=== PATIENT | female | born 2005 | race Caucasian/White ===

== ENCOUNTER 2024-07-09 18:24 | Emergency (ER) | payer OTHER, SELFPAY ==
--- NOTE | ~2024-07-09 | XR_ITS ---
CLINICAL HISTORY: tenderness distal ulna 3 view right hand Comparison: None Findings: Bones intact. No dislocations. No significant arthritic change. No erosions. No radiopaque foreign body. IMPRESSION: 1. No acute findings This document has been electronically signed by: Guy Vyas MD on 07/09/2024 19:28:06
[2024-07-09 18:34] VITALS: BP 110/60; PULSE 90; O2SAT 98
--- NOTE | 2024-07-09 18:42 | ED_ITS ---
HPI - General Adult General Chief complaint: Extremity Injury, Upper Stated complaint: r wrist pain Time Seen by Provider: 07/10/24 01:46 Source: patient Limitations: no limitations History of Present Illness ED Provider: Tonya Hinton PA-C HPI narrative: 18 year old female with a history of anxiety presents with right wrist pain. Patient states she was trying to pull herself up onto her bed, she subsequently strained the wrist. Related Data Home Medications ?Medication ?Instructions ?Recorded ?Confirmed escitalopram oxalate 10 mg tablet mg PO DAILY 07/01/24 Allergies Allergy/AdvReac Type Severity Reaction Status Date / Time No Known Allergies Allergy Verified 07/09/24 18:55 Review of Systems Review of Systems: Yes all other systems are reviewed and are negative Constitutional: Constitutional: Denies fatigue and Denies fever(s) Cardiovascular: Cardiovascular: Denies chest pain and Denies dyspnea Respiratory: Respiratory: Denies cough and Denies dyspnea Musculoskeletal: Musculoskeletal: Reports arthralgias and Denies joint swelling Endocrine: Endocrine: Denies fatigue [facility] Past Medical History Attestation statement: The following information was validated with the patient. Social History Social History Alcohol intake: never Patient Tobacco Use Status: Never used Tobacco Smoked in Last 30 Days: No Use of substances other than those prescribed or required for medical reasons: No Advance Directives: No Advance Directives Information Provided: Yes Do you have a plan to hurt others: No Plan Patient : No Physical Exam ED Vital Signs: Vital Signs - 24 hr 07/09/24 18:49 07/10/24 04:00 07/10/24 11:33 Temperature 97.6 F 97.4 F Pulse Rate 89 74 74 Respiratory Rate 18 20 Blood Pressure 113/75 115/69 115/69 Pulse Oximetry 100 97 97 Oxygen Delivery Method Room Air Room Air BMI result Body Mass Index 19.4 Const Other: Alert, anxious, tearful, sobbing Orientation/consciousness: patient oriented x3 Resp Effort & Inspection: normal respiratory effort Cardio Other: Normal peripheral perfusion Skin Other: Warm dry no rash Neuro General: patient oriented x3, no focal motor deficits and CN's II-XI intact b ilaterally Extrem Other: There was no swelling, deformity or ecchymosis noted over the right wrist, she has full flexion and extension. There is full flexion and extension of bilateral ankles, there was no swelling, there was no deformity there was no ecchymosis. Course Course Course Narrative: This is a rapid medical exam performed by Ki Henry NP: Additional HPI, ROS, PE not included below will be deferred to primary provider. Patient is a 18-year-old right hand dominant female presenting with right wrist pain. Student at [employer], currently using crutches for sprained ankle. Pain began while using crutches trying to get into her bed. Plan: xray Reevaluation(s) Reevaluation #1: I spoke with the patient's mother over the phone. She relayed to me that her child is on the spectrum, that she has anxiety, which I can see in her chart. I have relayed the plan to her, she is going to call her daughter back. I will touch base with mom again after she speaks with the daughter. I did express concerns that the daughter may require care team consult given she is having an active panic attack. We will see how this plays out once her mom speaks with her daughter. Reevaluation #2: The patient has settled down, I am offering her food and drink, we are going to get her into a quiet space. Mom is aware of the plan and is in agreement. Reevaluation #3: 07/10/2024 1218 pm Awa Landry PA-C ---> Patient evaluated by physical t rhea who expressed concern over patient's response to these minor injuries and recommended CARE team consult. I agree. CARE consult placed. 07/10/2024 1221 pm Awa Landry PA-C ---> Patient declined CARE consult and would like to be discharged. Patient cleared for discharge. Medications Administered Discontinued Medications Generic Name Dose Route Start Last Admin Trade Name Bronywn PRN Reason Stop Dose Admin Acetaminophen 975 mg 07/10/24 03:08 07/10/24 03:50 Acetaminophen 325 Mg Tablet PO 07/10/24 03:09 975 mg ONCE ONE Administration Ibuprofen 600 mg 07/10/24 03:08 07/10/24 03:49 Ibuprofen 600 Mg Tablet PO 07/10/24 03:09 600 mg ONCE ONE Administration Medical Decision Making Medical Decision Making MDM Narrative: 18 year old female with a history of anxiety presents with right wrist pain. Patient states she was trying to pull herself up onto her bed, she subsequently strained the wrist. Problem: Anxiety History: Per patient I have considered the following differential diagnoses: Panic attack, fracture, dislocation, sprain Plan: X-ray obtained from triage, it was normal. The patient is developing a panic attack. She states she sprained the right ankle in April, she has had ongoing discomfort and has been unable to ambulate. She has been using crutches to help her ambulate. She subsequently sprained the left ankle last week. Now that the patient has injured the right wrist, she is extremely distraught, she is panicking that she is not going to be able to ambulate at all and maneuver herself on campus; she is a [employer] student. I will be placing her in a wrist splint, giving ibuprofen and Tylenol. My plan is to hold her over for physical therapy and case management, she is inquiring about a wheelchair. I will be reaching out to her mother, she had left a message to call with updates. To note, the patient has an appointment with an orthopedic service next week. I have independently reviewed the following tests: X-ray right wrist:MPRESSION: 1. No acute findings This document has been electronically signed by: Guy Vyas MD on 07/09/2024 19:28:06 Lab Data Labs: Lab Results 07/10/24 Range/Units 10:14 Influenza Type A (PCR) NEGATIVE (Negative) Influenza Type B (PCR) NEGATIVE (Negative) RSV RNA Qual (PCR) NEGATIVE (Negative) SARS-CoV-2 RNA (RT-PCR) NEGATIVE (Negative) Discharge Plan Discharge Clinical Impression: Right ankle sprain, Bilateral ankle pain Patient Disposition: Still a Patient Prescriptions: No Action escitalopram oxalate 10 mg tablet PO DAILY Print Language: Spanish
[2024-07-09 18:49] VITALS: BP 113/75; PULSE 89; RESP 18; TEMP 36.4; O2SAT 100; BMI 19.4
[2024-07-10] MEDS: Ibuprofen 600 MG TABLET PO (03:49)
[2024-07-10] MEDS: Acetaminophen 325 MG TABLET 975 MG PO (03:50)
[2024-07-10 04:00] VITALS: BP 115/69; PULSE 74; RESP 20; TEMP 36.3; O2SAT 97
[2024-07-10 11:04] LABS: Influenza A PCR NEGATIVE (Negative); Influenza B PCR NEGATIVE (Negative); Resp Syncy Virus RNA Qual PCR NEGATIVE (Negative); SARS COV2 PCR INHOUSE NEGATIVE (Negative)
[2024-07-10 11:33] VITALS: BP 115/69; PULSE 74; O2SAT 97
[2024-07-10 12:28] VITALS: BP 119/67; PULSE 81; RESP 16; TEMP 36.4; O2SAT 100
== END 2024-07-10 13:37 | disposition home or self-care (01) ==
PROVIDERS: Physician Assistant Medical; Emergency Provider Emergency Medicine
DX: S63.501A Unspecified sprain of right wrist, initial encounter (principal); S93.401A Sprain of unspecified ligament of right ankle, initial encounter; M25.562 Pain in left knee; M25.561 Pain in right knee; M79.641 Pain in right hand; F41.0 Panic disorder [episodic paroxysmal anxiety]; R26.81 Unsteadiness on feet; W06.XXXA Fall from bed, initial encounter; Y93.9 Activity, unspecified; Y92.003 Bedroom of unspecified non-institutional (private) residence as the place of occurrence of the external cause; Y99.8 Other external cause status; Z03.818 Encounter for observation for suspected exposure to other biological agents ruled out; Z91.81 History of falling; Z79.899 Other long term (current) drug therapy
CPT/HCPCS: 0241U; 29125; 73110; 73130; 97162; 99284

== ENCOUNTER → 2024-07-09 18:51 | Outpatient (BNV) | payer OTHER, SELFPAY | PROVIDERS: Visit Provider Radiology Diagnostic Radiology | DX: M79.641 Pain in right hand (principal) | CPT/HCPCS: 73130 ==

== ENCOUNTER 2024-07-15 10:07 | Outpatient (AMB) | payer OTHER, SELFPAY ==
--- NOTE | 2024-07-15 10:11 | MHC.OFFVIS ---
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 Patient reports for her right ankle she was walking on snow and she felt her ankle twist. She also is having complaints about left ankle pain since she was wearing a boot a couple weeks ago she had a shoe level on her left foot which made her ankle twist. Patient also states that her right wrist pain started when she was trying to get her slef up and started to have sharp pain in her wrist. Wrist pain started 07/09/24 . Hx of fx a couple years ago. Allergies No Known Allergies Allergy (Verified 07/15/24 10:28) HPI HPI WINCHMAN/CRANE OPERATOR- Right ankle sprain DOI 05/11/24: Details: Jennifer is a 18 year old right hand dominant female past medical history significant for autism who presents to the office today with her mother for bilateral ankle sprains. She presents today with bilateral ankle lace up braces and ambulating with the use of crutches as well as a right wrist velcro brace. Patient reports for her right ankle she was walking on snow on 05/11/2024 and she felt her ankle twist. She also is having complaints about left ankle pain. She reports that she was wearing a walking boot on the right side and a few weeks ago she had a shoe lift in the left shoe to help even out her gait. While walking the shoe lift slipped causing her to invert the left ankle. Patient also states that her right wrist pain started when she was trying to get up and started to have sharp pain in her wrist. Wrist pain started 07/09/24 . Hx of fx years ago. [facility] Social History Alcohol intake: never Patient Tobacco Use Status: Never used Tobacco Review of Systems Const All systems reviewed & are unremarkable except as noted in HPI and below Physical Exam Vital Signs: BMI result Body Mass Index 19.4 Const General: cooperative, healthy appearing and no acute distress Resp Effort & Inspection: normal respiratory effort and able to speak in complete sentences Cardio Rate: regular rate Peripheral pulses: Peripheral pulses 2+ throughout Skin Lesions: no lesions Rashes: no rashes Extrem Other: Right/Left ankle: Normal to inspection. No ecchymosis, erythema, or edema. Slight tenderness to palpation along both peroneal tendons bilaterally. Patient is able to demonstrate dorsiflexion, plantar flexion, pronation and supination. Negative anterior drawer. Sensation intact. Pedal Pulse intact. Assessment & Plan Assessment & Plan (1) Right ankle sprain: Code(s): S93.401A - Sprain of unspecified ligament of right ankle, initial encounter Category: Medical Qualifiers: Encounter type: initial encounter Involved ligament of ankle: unspecified ligament Qualified Code(s): S93.401A - Sprain of unspecified ligament of right ankle, initial encounter (2) Left ankle sprain: Code(s): S93.402A - Sprain of unspecified ligament of left ankle, initial encounter Category: Medical Plan Jennifer is a 18 year old right hand dominant female past medical history significant for autism who presents to the office today with her mother for bilateral ankle sprains. She presents today with bilateral ankle lace up braces and ambulating with the use of crutches as well as a right wrist velcro brace. Patient reports for her right ankle she was walking on snow on 05/11/2024 and she felt her ankle twist. She also is having complaints about left ankle pain. She reports that she was wearing a walking boot on the right side and a few weeks ago she had a shoe lift in the left shoe to help even out her gait. While walking the shoe lift slipped causing her to invert the left ankle. Patient also states that her right wrist pain started when she was trying to get up and started to have sharp pain in her wrist. Wrist pain started 07/09/24 . Hx of fx years ago. While the office today, the patient was referred to physical therapy for bilateral ankle sprains. She may continue using the lace-up ankle braces bilaterally as well as crutches as needed until she attends physical therapy. While at physical therapy the goal is to wean her out of the bilateral ankle lace-up braces and discontinue crutch use once strength allows. She will follow up p.r.n., sooner if needed. X-rays of the right and left ankle which were obtained while in the office today and were reviewed by me, Lovely Duval PA-C, and were negative for any acute fracture dislocation. Orders: Orders XR ankle LT min 3V Today M25.579 - Pain in unspecified ankle and joints of unspecified foot PT Evaluation and Treatment Today S93.402A - Sprain of unspecified ligament of left ankle, initial encounter XR ankle RT min 3V Today M25.579 - Pain in unspecified ankle and joints of unspecified foot Coding Level of Care Code New Pt Level 4 (13288) Diagnoses Sprain of right ankle, unspecified ligament, initial encounter S93.401A Encounter type: initial encounter Involved ligament of ankle: unspecified ligament Left ankle sprain S93.402A
[2024-07-15 10:29] VITALS: BMI 19.4
--- OUTSIDE RECORDS SUMMARY | 2024-07-15 10:35 | XMS_ITS | Encounter Summary ---
Author Organization [facility] Address [address] [place] [address] Phone Care Team Providers Care Field Reimbursement Manager Name Role Phone Jason Curry MD, Carline Primary Care Provider [phone] Reason for Visit * Reason Comments ED Admission Encounter Details Date Type Department Care Team (Late st Contact Info) Description 07/09/2024 6:16 PM EST - 07/10/2024 1:37 PM [facility] Hospital Encounter [facility] - Patient Ping Social History Tobacco Use Types Packs/Day Years Used Date Smoking Tobacco: Never Smokeless Tobacco: Never Alcohol Use Standard Drinks/Week Comments Never 0 (1 standard drink = 0.6 oz pur e alcohol) Hunger/Food Answer Date Recorded In the last 12 months, did y ou or your family ever eat less than you felt you should because there wasn't enough money for food? No 08/13/2023 Stable Housing Answer Date Recorded Are you worried that in the next 2 months you may not have stable housing? No 08/13/2023 Transportation Concerns Answer Date Rec orded In the last 12 months, have you or your family ever had to go without healthcare because you didn't have a way to get there? No 08/13/2023 Hazards in Home Answer Date Recorded Think about the place you li ve. Do you have problems with any of the following? Pests (mice or roaches), mold, no/not working smoke detectors, water leaks, no window guards. No 2023 Financing Utilities Answer Date Recorde d In the last 12 months, has t he electric, gas, oil, or water company threatened to shut off your services in your home? No 08/13/2023 Safety at Home Answer Date Recorded Are you or your family worried about feeling saf e in your home? No 08/13/2023 Outside Support Answer Date Recorded Do you feel that you need mo re support from other people or programs to help you care for yourself or your family? No 08/13/2023 Understanding Health Concerns Answer Da te Recorded Do you need help understandi ng your or your child's healthcare needs (diagnosis, medications, plan, etc.)? No 08/13/2023 Financing Health Concerns Answer Date R ecorded In the last 12 months, was t here a time when your child needed to see a doctor or get medications or supplies but could not because of cost? No 08/13/2023 Missing School or Work Answer Date Adriná rded Did you or your child miss s chool or work because of a health problem that could have been avoided? No 08/13/2023 Comments Unknown Sex and Gender Information Value Date Recorded Sex Assigned at Female 01/21/2020 3:45 PM EDT Legal Sex Female 8:57 AM EST Gender Identity Gender nonconforming/non-binary 08/13/2023 2:25 PM EDT Sexual Orientation Choose not to disclose 2021 4:06 PM EDT documented as of this encounter Medications at Time of Discharge adapalene 0.3 % gel APPLY TOPICALLY TO THE AFFECTED AREA EVERY OTHER NIGHT AT BEDTIME FOR 4 WEEKS THEN APPLY TOPICALLY TO THE AFFECTED AREA EVERY NIGHT AT BEDTIME 06/29/2023 escitalopram 10 MG tablet TK 1 T PO QD 03/04/2019 documented as of this encounter Plan of Treatment Not on file documented as of this encounter Visit Diagnoses Not on filedocumented in this encounter Care Teams Field Reimbursement Manager Relationship Specialty Start Date End Date Carline Gomez MD [address] [place] [address] PCP - General 07/17/16 documented as of this encounter
--- OUTSIDE RECORDS SUMMARY | 2024-07-15 10:35 | XMS_ITS | Clinical Summary ---
Author Organization [facility] Address [address] [place] [id number] Care Team Providers Care Inspector Receiving Name Role Phone Carline Gomez MD Primary Care Provider Carline Gomez MD Unavailable [phone] Allergies No known active allergies Medications escitalopram oxalate (LEXAPRO) 10 MG tablet TK 1 T PO QD 0 03/04/2019 Active dicyclomine (BENTYL) 20 mg tablet Take 1 tablet (20 mg total) by mouth every morning & every evening for 20 doses. 20 tablet 01/08/2024 Active Encounters Date Type Department Care Team Description 05/16/2024 12:44 PM EST - 05/16/2024 11:59 PM EST Hospital Encounter [facility], Radiology [address] [place], [place] [id number] Elena Nunez NP Injury of ankle, right, initial encounter Discharge Disposition: Home or Self Care from Last 3 Months Social History Tobacco Use Types Packs/Day Years Used Date Smoking Tobacco: Never Smokeless Tobacco: Never Comments Unknown Sex and Gender Information Value Date Recorded Sex Assigned at Female 03/08/2019 7:45 PM EDT Legal Sex Female 12:27 AM EST Gender Identity Female 03/08/2019 7:45 PM EDT Sexual Orientation Not on file Last Filed Vital Signs Vital Sign Reading Time Taken Comments Blood Pressure 106/71 01/08/2024 6:12 PM EDT Pulse 80 01/08/2024 6:12 PM EDT Temperature 36.7 ??C (98 ??F) 01/08/2024 4:59 PM EDT Respiratory Rate 20 01/08/2024 6:12 PM EDT Oxygen Saturation 100% 01/08/2024 6:12 PM EDT Inhaled Oxygen Concentration - - Weight 57.7 kg (127 lb 3.3 oz) 01/08/2024 2:50 P M EDT Height 165.1 cm (5' 5 ) 01/08/2024 2:50 PM EDT Body Mass Index 21.17 01/08/2024 2:50 PM EDT Plan of Treatment Health Maintenance Due Date Last Done Comments Depression Screening 2008 Chlamydia and Gonorrhea Screening 08/22/2019 Hepatitis C Screening 2022 COVID-19 Vaccine ( season) 2024 Influenza Vaccine (#1) 2024 2, 06/09/2014, 03/04/2013 DTaP,Tdap,and Td Vaccines (7 - Td or Tdap) 09/25/2025 09/26/2015, 10/06/2008, 02/26/2006, Additional history exists Blood Pressure 01/08/2028 01/08/2024 Pneumococcal Vaccine: Pediatrics (0 to 5 Years) and At-Risk Patients (6 to 64 Years) Aged Out 09/18/2005, 02/21/2005, 2004, Additional history exists No longer eligible based on patient's age to complete this topic Meningococcal Vaccines Aged Out No lo nger eligible based on patient's age to complete this topic Procedures Procedure Name Priority Date/Time Associated Diagnosis Comments XR ANKLE 3+ VW RIGHT Routine 05/16/2024 12:53 PM EST Injury of ankle, right, initial encounter from Last 3 Months Results * XR Ankle 3+ Vw Right (05/16/2024 12:53 PM EST) Anatomical Region Laterality Modality Ankle Right Radio Fluoroscop y 05/16/2024 1:15 PM EST Impressions 05/16/2024 1:17 PM EST No fracture. Narrative 05/16/2024 1:17 PM EST EXAM DESCRIPTION: ??XR ANKLE 3+ VW RIGHT. CLINICAL HISTORY: ??fell 5 days ago, continues with ankle pain, rule out fracture; . COMPARISON: ??None. TECHNIQUE: ??AP, oblique, and lateral views of the right ankle. FINDINGS: ??No acute fracture, dislocation, or osseous lesion is seen. The ankle mortise is congruent. ??The talar dome is intact. ??No osteochondral defect is seen. ??Mineralization and joint spaces are maintained. - Please note that a negative plain image does not exclude ligamentous injury. Procedure Note Alexandria Jaime MD - 05/16/2024 EXAM DESCRIPTION: XR ANKLE 3+ VW RIGHT. CLINICAL HISTORY: fell 5 days ago, continues with ankle pain, rule out fracture; . COMPARISON: None. TECHNIQUE: AP, oblique, and lateral views of the right ankle. FINDINGS: No acute fracture, dislocation, or osseous lesion is seen. The ankle mortise is congruent. The talar dome is intact. No osteochondral defect is seen. Mineralization and joint spaces are maintained. - Please note that a negative plain image does not exclude ligamentous injury. IMPRESSION: No fracture. Elena Nunez NP IMG DIAGNOSTIC IMAGING ORDERABLE S Final Result from Last 3 Months Insurance [facility] [place] [address] [address] Care Teams Inspector Receiving Relationship Specialty Start Date End Date Carline Gomez MD [address] [place] [id number] PCP - General 03/08/19 Carline Gomez MD [address] [place] [id number] PCP - Insurance Assigned PCP 01/16/22
--- OUTSIDE RECORDS SUMMARY | 2024-07-15 10:35 | XMS_ITS | Encounter Summary ---
Author Organization [facility] Address [address] [place] [phone] Phone Care Team Providers Care Dock Or Pier Laborer Name Role Phone Jason Curry MD, Carline Primary Care Provider [phone] Encounter Details Date Type Department Care Team (Late st Contact Info) Description 10/12/2016 Conversion Encounter [facility] [address] [place] [address] Carline Gomez MD [address] [place] [address] Social History Tobacco Use Types Packs/Day Years Used Date Smoking Tobacco: Never Assessed Comments Unknown Sex and Gender Information Value Date Recorded Sex Assigned at Female 01/21/2020 3:45 PM EDT Legal Sex Female 8:57 AM EST Gender Identity Gender nonconforming/non-binary 08/13/2023 2:25 PM EDT Sexual Orientation Choose not to disclose 2021 4:06 PM EDT documented as of this encounter Plan of Treatment Not on file documented as of this encounter Visit Diagnoses Not on filedocumented in this encounter Care Teams Dock Or Pier Laborer Relationship Specialty Start Date End Date Carline Gomez MD [address] [place] [address] PCP - General 07/17/16 documented as of this encounter
--- OUTSIDE RECORDS SUMMARY | 2024-07-15 10:35 | XMS_ITS | Encounter Summary ---
Author Organization [facility] Address [address] [place] [address] Phone Care Team Providers Care Life Skills Coordinator Volunteer Name Role Phone Jason Curry MD, Johanna Primary Care Provider [phone] Reason for Referral * Consult and return to PCP (Routine) - Authorized Specialty Diagnoses / Procedures Referred By Contemiliano t Referred To Contact Orthopedic Surgery Diagnoses Sprain of right ankle, unspecified ligament, initial encounter Carline Gomez MD [address] [place] [address] Phone: tel: fax: [facility] [address] [place] [address] [place] [address] Phone: tel: fax: Referral ID Status Reason Start Date Expiration Date Visits Requested Visits Authorized [id number] Authorized Specialty Services Required 07/02/2024 05/26/2025 6 6 Scheduling Instructions Purpose of Visit: Sprain in April, ongoing pain Reason for Visit * Reason Onset Date Comments Ankle Pain 06/29/2024 Encounter Details Date Type Department Care Team ([facility] st Contact Info) Description 06/29/2024 Telephone [facility] [address] [place] [address] Carline Gomez MD [address] [place] [address] Ankle Pain Social History Tobacco Use Types Packs/Day Years [...] 08/13/2023 Missing School or Work Answer Date Adrián rded Did you or your child miss [...] PM EDT documented as of this encounter Miscellaneous Notes * Telephone Encounter - Nuria Felix RN - 06/30/2024 1:18 PM EST Informed mom * Telephone Encounter - Carline Curry MD - 06/30/2024 12:40 PM EST Referral placed, please let family know and explain process for liv to process once they have anappointment. Thanks, J * Telephone Encounter - Shanita Cronin RN - 06/29/2024 11:03 AM EST To Aliza, Okay for referral? * Telephone Encounter - Tamela Fonseca - 06/29/2024 10:27 AM EST Triage VM 9:56AM - Mom called, pt had sprained there ankle back in April and continues to have pain. Mom would like a referral to see Ortho, pt is currently in college in [place], [place] 08/13/23 Pt gives mother Rhonda Gustafson permission to speak to our providers without restriction. documented in this encounter Plan of Treatment Scheduled Referrals Name Type Priority Associated Diagnoses Orde r Schedule Ambulatory referral to Orthopedic Surgery Outpatient Referral Routine Sprain of right ankle, unspecified ligament, initial encounter Ordered: 06/30/2024 documented as of this encounter Visit Diagnoses Diagnosis Sprain of right ankle, unspecified ligament, initial encounter- Primary documented in this encounter Care Teams Life Skills Coordinator Volunteer Relationship Specialty Start Date End Date Carline Gomez MD [address] [address] PCP - General 07/17/16 documented as of this encounter
--- OUTSIDE RECORDS SUMMARY | 2024-07-15 10:35 | XMS_ITS | Encounter Summary ---
Author Organization [facility] Address [address] [place] [address] Phone Care Team Providers Care Sash Installer Name Role Phone Jason Curry MD, Carline Primary Care Provider [phone] Encounter Details Date Type Department Care Team (Late st Contact Info) Description 10/12/2016 Conversion Encounter [facility] [address] [place] [address] Carline Gomez MD [address] [place] [address] Social History Tobacco Use Types Packs/Day Years [...] on filedocumented in this encounter Care Teams Sash Installer Relationship Specialty Start Date End Date Carline Gomez MD [address] [place] [address] PCP - General 07/17/16 documented as of this encounter
--- OUTSIDE RECORDS SUMMARY | 2024-07-15 10:35 | XMS_ITS | Continuity of Care Document ---
[facility] Organization [facility] Address [address] [place] [address] Phone Care Team Providers Care Mechanic Insulator Name Role Phone Julita Pierce MD, MD Unavailable Unavailab le Allergies, Adverse Reactions, Alerts Substance Reaction Status Criticality No Known allergies Procedures Procedure Date PREV VISIT, EST, AGE 5-11 Flu Mist IMMUNE ADMIN ORAL/NASAL OFFICE/OUTPATIENT VISIT, EST Advance Directives Directive Yes / No Effective Date File Name No Information Encounters Encounter Description Practice Location Reason(s) For Visit Diagnoses Date Provider Providers Copied on Encounter [facility], [address] [place], [place], [id number], tel:[phone] [facility] No Information Stan Cancino. [address], [place], [address], [place]. tel:[phone] PREV VISIT, EST, AGE 5-11 [facility], [address] [place], [place], [id number], tel:[phone] [facility] No Information Stan Cancino. [address], [place], [address], [place]. tel:[phone] Referring Provider: Julita Pierce MD C, [address], [place], [address]. tel:[phone] OFFICE/OUTPAT IENT VISIT, EST [facility], [address] [place], [place], [id number], tel:[phone] [facility] Other developmental speech disorder Puneet Woodard. [address] [place], [place], [id number], [place]. tel:[phone] Referring Provider: Vance Garcia, [address] [place], [address] . tel:[phone] Family History Family Member Type Diagnosis Age At Onset No Information Immunizations Vaccine Date Status Comments Influenza virus vaccine, intranasal administered Source: New Immuniza tion Record varicella administered Source: New Imm unization Record MMR administered Source: New Imm unization Record polio, inactivated (IPV) administered Katina rce: New Immunization Record hep A (ped/adol, 2 dose) administered Katina rce: New Immunization Record DTaP administered Source: New Imm unization Record hep A (ped/adol, 2 dose) administered Katina rce: New Immunization Record DTaP administered Source: New Imm unization Record varicella administered Source: New Imm unization Record Pneumo (under 5) (PCV7) administered Sour ce: New Immunization Record varicella administered Source: New Imm unization Record Comvax r administered Source: New Imm unization Record MMR administered Source: New Imm unization Record polio, inactivated (IPV) administered Katina rce: New Immunization Record Pneumo (under 5) (PCV7) administered Sour ce: New Immunization Record DTaP administered Source: New Imm unization Record Pneumo (under 5) (PCV7) administered Sour ce: New Immunization Record Comvax r administered Source: New Imm unization Record polio, inactivated (IPV) administered Katina rce: New Immunization Record DTaP administered Source: New Imm unization Record Pneumo (under 5) (PCV7) administered Sour ce: New Immunization Record Comvax r administered Source: New Imm unization Record polio, inactivated (IPV) administered Katina rce: New Immunization Record DTaP administered Source: New Imm unization Record Payers Payer name Insurance type Covered constitution party ID Authoriza tion(s) No Information Social History Type Description Quantity Date Captured Comments Sex Female Smoking Status No Information Chief Complaint And Reason For Visit No Information Reason For Referral Reason For Referral No Information History Of Present Illness Encounter Date Complaint History Of Prese nt Illness No Information Functional Status Date Functional Assessmen t No Information Instructions Date Instruction Additional Infor mation No Information Assessments Type Assessment Date No Information Patient Care Teams Name Effective Dates (start - stop) Status Members No Information
--- OUTSIDE RECORDS SUMMARY | 2024-07-15 10:35 | XMS_ITS | Encounter Summary ---
Author Organization [facility] Address [address] [place] [address] Phone Care Team Providers Care Systems Project Manager Name Role Phone Jason Curry MD, Carline Primary Care Provider [phone] Reason for Visit * Reason Onset Date Comments Ortho Referral 07/02/2024 Encounter Details Date Type Department Care Team ([facility] st Contact Info) Description 07/02/2024 Telephone [facility] [address] [place] [address] Carline Gomez MD [address] [place] [address] Ortho Referral Social History Tobacco Use Types Packs/Day Years [...] encounter Miscellaneous Notes * Telephone Encounter - Yany Bey - 07/02/2024 10:05 AM EST This is here and up front in [employer]'s folder. * Telephone Encounter - Tamela Fonseca - 07/02/2024 9:51 AM EST Triage VM 9:37AM - Mom called, is requesting a referral for [facility] They told mom they were sending form over to us today. Address: [address] [place] [address] [address], [place] [address] - documented in this encounter Plan of Treatment Not on file documented as of this encounter Visit Diagnoses Not on filedocumented in this encounter Care Teams Systems Project Manager Relationship Specialty Start Date End Date Carline Gomez MD [address] [address] PCP - General 07/17/16 documented as of this encounter
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
--- OUTSIDE RECORDS SUMMARY | 2024-07-15 10:35 | XMS_ITS | Encounter Summary ---
Author Organization [facility] Address [address] [place] [address] Phone Care Team Providers Care Engine Test Cell Technician Name Role Phone Jason Curry MD, Carline Primary Care Provider [phone] Encounter Details Date Type Department Care Team (Late st Contact Info) Description 10/12/2016 Conversion Encounter [facility] [address] [place] [address] Carline Gomez MD [address] [place] [address] Social History Tobacco Use Types Packs/Day Years [...] on filedocumented in this encounter Care Teams Engine Test Cell Technician Relationship Specialty Start Date End Date Carline Gomez MD [address] [place] [address] PCP - General 07/17/16 documented as of this encounter
--- OUTSIDE RECORDS SUMMARY | 2024-07-15 10:35 | XMS_ITS | Encounter Summary ---
Author Organization [facility] Address [address] [place] [address] Phone Care Team Providers Care Director Chemistry Name Role Phone Jason Curry MD, Carline Primary Care Provider [phone] Encounter Details Date Type Department Care Team (Late st Contact Info) Description 10/12/2016 Conversion Encounter [facility] [address] [place] [address] Carline Gomez MD [address] [place] [address] Social History Tobacco Use Types Packs/Day Years [...] on filedocumented in this encounter Care Teams Director Chemistry Relationship Specialty Start Date End Date Carline Gomez MD [address] [place] [address] PCP - General 07/17/16 documented as of this encounter
--- OUTSIDE RECORDS SUMMARY | 2024-07-15 10:35 | XMS_ITS | Clinical Summary ---
Author Organization [facility] Address [address] [facility] [place] [address] Care Team Providers Care Supervisor Gate Services Name Role Phone Carline Gomez MD Primary Care Provider Social History Tobacco Use Types Packs/Day Years Used Date Smoking Tobacco: Never Assessed Comments Unknown Sex and Gender Information Value Date Recorded Sex Assigned at Not on file Legal Sex Female 2:23 PM EST Gender Identity Not on file Sexual Orientation Not on file Plan of Treatment Health Maintenance Due Date Last Done Comments Chlamydia Screening 2020 Hepatitis C Screening 2022 Periodic Health Exam 2022 Hepatitis B Vaccines (1 of 3 - 19+ 3-dose series) 08/22/2023 Tetanus Diphtheria and Pertussis Vaccines (TD and TDaP) (1 - Tdap) 08/22/2023 Influenza (Seasonal) 12/26/2023 CoVid-19 Vaccine ( - 2023- season) 2024 HIB Vaccines Completed 09/18/2005, 11/25, 2004 Pneumococcal Vaccine: Pediatrics (0 to 5 Years) and At-Risk Patients (6 to 64 Years) Aged Out 09/18/2005, 02/21/2005, 2004, Additional history exists No longer eligible based on patient's age to complete this topic Hepatitis A Vaccines Completed 10/06/2008, 01/23/20 08 Varicella Vaccines Completed 10/07/2009, 09/18/2005 Meningococcal Vaccine Aged Out 09/26/2015 No torres teena eligible based on patient's age to complete this topic HPV Vaccines Completed 01/21/2020, 10/10/2018 Insurance [facility] NAVIGATOR [facility] NAVIGATOR Care Teams Supervisor Gate Services Relationship Specialty Start Date End Date Carline Gomez MD [facility], [address], [facility] [address] [place] [address] PCP - General Pediatrics 12/05/20
--- OUTSIDE RECORDS SUMMARY | 2024-07-15 10:35 | XMS_ITS | Encounter Summary ---
Author Organization [facility] Address [address] [place] [address] Care Team Providers Care Dairy Husbandry Teacher Name Role Phone Carline Gomez MD Primary Care Provider Carline Gomez MD Unavailable [phone] Encounter Details Date Type Department Care Team (Late st Contact Info) Description 01/16/2022 Lab Requisition [facility] [address] [place] [address] Radha Marcos, MEDICAID PLAN COMPLIANCE DIRECTOR [address] [facility] [address] [place], [place] [id number] Candidiasis of vulva and vagina Social History Tobacco Use Types Packs/Day Years Used Date Smoking Tobacco: Never Smokeless Tobacco: Never Comments Unknown Sex and Gender Information Value Date Recorded Sex Assigned at Female 03/08/2019 7:45 PM EDT Legal Sex Female 12:27 AM EST Gender Identity Female 03/08/2019 7:45 PM EDT Sexual Orientation Not on file documented as of this encounter Plan of Treatment Not on file documented as of this encounter Procedures Procedure Name Priority Date/Time Associated Diagnosis Comments CULTURE, GENITAL Routine 01/16/2022 7:45 PM EDT Candidiasis of vulva and vagina documented in this encounter Results * Culture, Genital (01/16/2022 7:45 PM EDT) Culture Normal lawrence RYANN 01/18/2022 12:14 PM EDT [facility] Genital VAGINAL STRUCTURE / Unknown 01/16/2022 7:45 PM EDT 01/16/2022 7:45 PM EDT Radha Marcos MEDICAID PLAN COMPLIANCE DIRECTOR MICROBIOLOGY - GENERAL ORDERA BLES Final Result [facility] [address] [place] [address], documented in this encounter Visit Diagnoses Diagnosis Candidiasis of vulva and vagina documented in this encounter Care Teams Dairy Husbandry Teacher Relationship Specialty Start Date End Date Carline Gomez MD [address] [place] [address] PCP - General 03/08/19 Carline Gomez MD [address] [place] [address] PCP - Insurance Assigned PCP 01/16/22 documented as of this encounter
--- OUTSIDE RECORDS SUMMARY | 2024-07-15 10:35 | XMS_ITS | Clinical Summary ---
Author Organization [facility] Address [address] [place] [address] Phone Care Team Providers Care Novelty Worker Name Role Phone Jason Curry MD, Johanna Unavailable [phone] Jason Curry MD, Johanna Primary Care Provider [phone] Jason Curry MD, Johanna Unavailable [phone] Jason Curry MD, Johanna Unavailable [phone] Social History Tobacco Use Types Packs/Day Years Used Date Smoking Tobacco: Never Assessed Comments Unknown Sex and Gender Information Value Date Recorded Sex Assigned at Not on file Legal Sex Female 10:41 PM EDT Gender Identity Not on file Sexual Orientation Not on file Plan of Treatment Health Maintenance Due Date Last Done Comments HIV Screening 2004 MMR Vaccines (1 of 1 - Stand saray series) 2005 DTaP/Tdap/Td Vaccines (1 - Tdap) 08/22/2011 Varicella Vaccines (1 of 2 - 13+ 2-dose series) 2017 HPV Vaccines (1 - 3-dose series) 08/22/2019 Hepatitis C Screening 2022 Hepatitis B Vaccines (1 of 3 - 19+ 3-dose series) 08/22/2023 COVID-19 Vaccine ( - 2023-2 5 season) 2024 Influenza Vaccine (#1) 2024 HIB Vaccines Aged Out No longer eligi ble based on patient's age to complete this topic Hepatitis A Vaccines Aged Out No long er eligible based on patient's age to complete this topic IPV Vaccines Aged Out No longer eligi ble based on patient's age to complete this topic Meningococcal Vaccine Aged Out No torres teena eligible based on patient's age to complete this topic Pneumococcal Vaccine: Pediat rics (0 to 5 Years) and At-Risk Patients (6 to 64 Years) Aged Out No longer eligible b ased on patient's age to complete this topic Rotavirus Vaccines Aged Out No longer eligible based on patient's age to complete this topic Insurance [facility] Care Teams Novelty Worker Relationship Specialty Start Date End Date Carline Gomez MD [address] [address] PCP - Insurance PCP 03/05/21 Carline Gomez MD [address] [address] PCP - General 03/08/19 Carline Gomez MD [address] [address] PCP - Clinical PCP 03/08/19 Carline Gomez MD [address] [address] PCP - Insurance Identified PCP 06/30/24
== END 2024-07-15 12:00 | disposition home or self-care (01) ==
PROVIDERS: Visit Provider Physician Assistant
DX: S93.401A Sprain of unspecified ligament of right ankle, initial encounter (principal); S93.402A Sprain of unspecified ligament of left ankle, initial encounter
CPT/HCPCS: 99204

== ENCOUNTER → 2024-07-15 10:08 | Outpatient (BNV) | payer OTHER, SELFPAY | PROVIDERS: Visit Provider Radiology Diagnostic Radiology | DX: M25.571 Pain in right ankle and joints of right foot (principal); M25.572 Pain in left ankle and joints of left foot | CPT/HCPCS: 73610 ==

== ENCOUNTER 2024-07-15 10:33 | Outpatient (REF) | payer OTHER, SELFPAY ==
--- NOTE | ~2024-07-15 | XR_ITS ---
EXAMINATION: XR ANKLE, RIGHT CLINICAL INFORMATION: M25.579 - Pain in unspecified ankle and joints of unspecified foot COMPARISON: None available. TECHNIQUE: AP, lateral, and mortise views of the right ankle. FINDINGS: No fracture. Alignment is anatomic. No erosions. Joint spaces are maintained. Subtalar joints and calcaneus appear normal. Soft tissues are normal. XR/XR ankle RT min 3V IMPRESSION: Normal right ankle. Electronically signed by: Gustavo Stafford MD 07/15/2024 01:44 PM [facility]
--- NOTE | ~2024-07-15 | XR_ITS ---
EXAMINATION: XR ANKLE, LEFT CLINICAL INFORMATION: M25.579 - Pain in unspecified ankle and joints of unspecified foot COMPARISON: None available. TECHNIQUE: AP, lateral, and mortise views of the left ankle. FINDINGS: No fracture. Alignment is anatomic. No erosions. Joint spaces are maintained. Subtalar joints and calcaneus appear normal. Soft tissues are normal. XR/XR ankle LT min 3V IMPRESSION: Normal left ankle. Electronically signed by: Gustavo Stafford MD 07/15/2024 01:45 PM [facility]
--- OUTSIDE RECORDS SUMMARY | 2024-07-15 11:11 | XMS_ITS | Encounter Summary ---
Author Organization [facility] Address [address] [place] [address] Phone Care Team Providers Care Hand Potter Name Role Phone Jason Curry MD, Carline Primary Care Provider [phone] Encounter Details Date Type Department Care Team (Late st Contact Info) Description 10/12/2016 Conversion Encounter [facility] [address] [place] [address] Carline Gomez MD [address] [place] [address] Social History Tobacco Use Types Packs/Day Years [...] on filedocumented in this encounter Care Teams Hand Potter Relationship Specialty Start Date End Date Carline Gomez MD [address] [place] [address] PCP - General 07/17/16 documented as of this encounter
--- OUTSIDE RECORDS SUMMARY | 2024-07-15 11:11 | XMS_ITS | Encounter Summary ---
Author Organization [facility] Address [address] [place] [address] Phone Care Team Providers Care Security Sales Manager Name Role Phone Jason Curry MD, Carline Primary Care Provider [phone] Reason for Visit * Reason Comments ED Admission Encounter Details Date Type Department Care Team (Late st Contact Info) Description 07/09/2024 6:16 PM EST - 07/10/2024 1:37 PM [facility] Hospital Encounter [facility] - Patient Ping Social History Tobacco Use [...] on filedocumented in this encounter Care Teams Security Sales Manager Relationship Specialty Start Date End Date Carline Gomez MD [address] [place] [address] PCP - General 07/17/16 documented as of this encounter
--- OUTSIDE RECORDS SUMMARY | 2024-07-15 11:11 | XMS_ITS | Clinical Summary ---
Author Organization [facility] Address [address] [place] [address] Care Team Providers Care Senior Database Administrator Name Role Phone Carline Gomez MD Primary [...] topic HPV Vaccines Completed 01/21/2020, 10/10/2018 Insurance [facility] [facility] [employer] [facility] Care Teams Senior Database Administrator Relationship Specialty Start Date End Date Carline Gomez MD [facility], [address], [facility] [address] [place] [address] PCP - General Pediatrics 12/05/20
--- OUTSIDE RECORDS SUMMARY | 2024-07-15 11:11 | XMS_ITS | Clinical Summary ---
Author Organization [facility] Address [address] [place] [address] Phone Care Team Providers Care Sludge Mill Operator Name Role Phone Jason Curry MD, Johanna Unavailable [phone] Jason Curry MD, Johanna Primary Care Provider [phone] Jason Curry MD, Johanna Unavailable [phone] Jason Curry MD, Johanna Unavailable [phone] Social History Tobacco Use Types Packs/Day Years [...] age to complete this topic Insurance [facility] Care Teams Sludge Mill Operator Relationship Specialty Start Date End Date Carline Gomez MD [address] [address] PCP - Insurance PCP 03/05/21 Carline Gomez MD [address] [address] PCP - General 03/08/19 Carline Gomez MD [address] [address] PCP - Clinical PCP 03/08/19 Carline Gomez MD [address] [address] PCP - Insurance Identified PCP 06/30/24
--- OUTSIDE RECORDS SUMMARY | 2024-07-15 11:11 | XMS_ITS | Encounter Summary ---
Author Organization [facility] Address [address] [place] [address] Phone Care Team Providers Care Fitness Supervisor Name Role Phone Jason Curry MD, Carline Primary Care Provider [phone] Encounter Details Date Type Department Care Team (Late st Contact Info) Description 10/12/2016 Conversion Encounter [facility] [address] [place] [address] Carline Gomez MD [address] [place] [address] Social History Tobacco Use Types Packs/Day Years [...] on filedocumented in this encounter Care Teams Fitness Supervisor Relationship Specialty Start Date End Date Carline Gomez MD [address] [place] [address] PCP - General 07/17/16 documented as of this encounter
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
--- OUTSIDE RECORDS SUMMARY | 2024-07-15 11:11 | XMS_ITS | Encounter Summary ---
Author Organization [facility] Address [address] [place] [address] Phone Care Team Providers Care Manager Internet Retails Sales Name Role Phone Jason Curry MD, Carline Primary Care Provider [phone] Encounter Details Date Type Department Care Team (Late st Contact Info) Description 10/12/2016 Conversion Encounter [facility] [address] [place] [address] Carline Gomez MD [address] [place] [address] Social History Tobacco Use Types Packs/Day Years [...] on filedocumented in this encounter Care Teams Manager Internet Retails Sales Relationship Specialty Start Date End Date Carline Gomez MD [address] [place] [address] PCP - General 07/17/16 documented as of this encounter
--- OUTSIDE RECORDS SUMMARY | 2024-07-15 11:11 | XMS_ITS | Encounter Summary ---
Author Organization [facility] Address [address] [place] [address] Phone Care Team Providers Care Sod Stripper Name Role Phone Jason Curry MD, Carline Primary Care Provider [phone] Reason for Visit * Reason Onset Date Comments Ortho Referral 07/02/2024 Encounter Details Date Type Department Care Team ([facility] st Contact Info) Description 07/02/2024 Telephone [facility] [address] [place] [address] Carline Gomez MD [address] [place] [address] Ortho Referral Social History Tobacco Use Types [...] This is here and up front in [email or web address]'s folder. * Telephone Encounter - Tamela Fonseca - 07/02/2024 9:51 AM EST Triage VM 9:37AM - Mom called, is requesting a referral for [facility] They told mom they were sending form over to us today. Address: [address] [place] [address] [address], [place] [address] - documented in this encounter Plan of Treatment Not on file documented as of this encounter Visit Diagnoses Not on filedocumented in this encounter Care Teams Sod Stripper Relationship Specialty Start Date End Date Carline Gomez MD [address] [address] PCP - General 07/17/16 documented as of this encounter
--- OUTSIDE RECORDS SUMMARY | 2024-07-15 11:11 | XMS_ITS | Continuity of Care Document ---
Author Organization [facility] Address [address] [place] [address] Phone Care Team Providers Care Certified Nurse Practitioner Name Role Phone Julita Pierce MD, MD [...] Diagnoses Date Provider Providers Copied on Encounter [facility], [address] [place], [place], [id number], tel:[phone] [facility] No Information Stan Cancino. [address], [place], [address], [place]. tel:[phone] PREV VISIT, EST, AGE 5-11 [facility], [address] [place], [place], [id number], tel:[phone] [facility] No Information Stan Cancino. [address], [place], [address], [place]. tel:[phone] Referring Provider: Julita Pierce MD C, [address], [place], [address]. tel:[phone] OFFICE/OUTPAT IENT VISIT, EST [facility], [address] [place], [place], [id number], tel:[phone] [facility] Other developmental speech disorder Puneet Woodard. [address] [place], [place], [id number], [place]. tel:[phone] Referring Provider: Vance Garcia, [address] [place], [address] . tel:[phone] Family History Family Member Type Diagnosis Age [...] Record Payers Payer name Insurance type Covered democrat ID Authoriza tion(s) No Information Social History [...]
--- OUTSIDE RECORDS SUMMARY | 2024-07-15 11:11 | XMS_ITS | Encounter Summary ---
Author Organization [facility] Address [address] [place] [address] Care Team Providers Care Counselor Marriage And Family Name Role Phone Carline Gomez MD Primary Care Provider Carline Gomez MD Unavailable [phone] Encounter Details Date Type Department Care Team (Late st Contact Info) Description 01/16/2022 Lab Requisition [facility] [address] [place] [address] Radha Marcos, [employer] 57 [facility] [address] [place], [place] [id number] Candidiasis of vulva and vagina Social History [...] Normal lawrence RYANN 01/18/2022 12:14 PM EDT [facility] Genital VAGINAL STRUCTURE / Unknown 01/16/2022 7:45 PM EDT 01/16/2022 7:45 PM EDT Radha Marcos [employer] MICROBIOLOGY - GENERAL ORDERA BLES Final Result [facility] [address] [place] [address], documented in this encounter Visit Diagnoses Diagnosis Candidiasis of vulva and vagina documented in this encounter Care Teams Counselor Marriage And Family Relationship Specialty Start Date End Date Carline Gomez MD [address] [place] [address] PCP - General 03/08/19 Carline Gomez MD [address] [place] [address] PCP - Insurance Assigned PCP 01/16/22 documented as of this encounter
--- OUTSIDE RECORDS SUMMARY | 2024-07-15 11:11 | XMS_ITS | Encounter Summary ---
Author Organization [facility] Address [address] [place] [address] Phone Care Team Providers Care Lining Marker Name Role Phone Jason Curry MD, Johanna Primary Care Provider [phone] Reason for Referral * Consult and return to PCP (Routine) - Authorized Specialty Diagnoses / Procedures Referred By Contemiliano t Referred To Contact Orthopedic Surgery Diagnoses Sprain of right ankle, unspecified ligament, initial encounter Carline Gomez MD [address] [place] [address] Phone: tel: fax: [facility] [address] [place] [address] [place] [address] Phone: tel: fax: Referral ID Status Reason Start Date Expiration Date Visits Requested Visits Authorized [id number] Authorized Specialty Services Required 07/02/2024 05/26/2025 6 6 Scheduling Instructions Purpose of Visit: Sprain in April, ongoing pain Reason for Visit * Reason Onset Date Comments Ankle Pain 06/29/2024 Encounter Details Date Type Department Care Team ([facility] st Contact Info) Description 06/29/2024 Telephone [facility] [address] [place] [address] Carline Gomez MD [address] [place] [address] Ankle Pain Social History Tobacco Use Types [...] Ortho, pt is currently in college in [place], [place] 08/13/23 Pt gives mother Rhonda Gustafson [...] Primary documented in this encounter Care Teams Lining Marker Relationship Specialty Start Date End Date Carline Gomez MD [address] [address] PCP - General 07/17/16 documented as of this encounter
--- OUTSIDE RECORDS SUMMARY | 2024-07-15 11:11 | XMS_ITS | Clinical Summary ---
Author Organization Alissa Chavira [facility] Address [address] [place] [address] Care Team Providers Care Scrap Crusher Name Role Phone Carline Gomez MD Primary Care Provider Carline Gomez MD Unavailable [phone] Allergies No known active allergies Medications escitalopram oxalate (LEXAPRO) 10 MG tablet TK 1 T PO QD 0 03/04/2019 Active dicyclomine (BENTYL) 20 mg tablet Take 1 tablet (20 mg total) by mouth every morning & every evening for 20 doses. 20 tablet 01/08/2024 Active Encounters Date Type Department Care Team Description 05/16/2024 12:44 PM EST - 05/16/2024 11:59 PM EST Hospital Encounter [facility], Radiology [address] [place], [place] [id number] Elena Nunez NP Injury of ankle, right, [...] Final Result from Last 3 Months Insurance [facility] [place] [address] Care Teams Scrap Crusher Relationship Specialty Start Date End Date Carline Gomez MD [address] [place] [address] PCP - General 03/08/19 Carline Gomez MD [address] [place] [address] PCP - Insurance Assigned PCP 01/16/22
--- OUTSIDE RECORDS SUMMARY | 2024-07-15 11:11 | XMS_ITS | Encounter Summary ---
Author Organization [facility] Address [address] [place] [address] Phone Care Team Providers Care Marketing Campaign Analyst Name Role Phone Jason Curry MD, Carline Primary Care Provider [phone] Encounter Details Date Type Department Care Team (Late st Contact Info) Description 10/12/2016 Conversion Encounter [facility] [address] [place] [address] Carline Gomez MD [address] [place] [address] Social History Tobacco Use Types Packs/Day Years [...] on filedocumented in this encounter Care Teams Marketing Campaign Analyst Relationship Specialty Start Date End Date Carline Gomez MD [address] [place] [address] PCP - General 07/17/16 documented as of this encounter
== END 2024-07-15 10:34 | disposition home or self-care (01) ==
LOC: HO.HOSX 10:33
PROVIDERS: Visit Provider Physician Assistant
DX: M25.571 Pain in right ankle and joints of right foot (principal); M25.572 Pain in left ankle and joints of left foot; S93.401A Sprain of unspecified ligament of right ankle, initial encounter; S93.402A Sprain of unspecified ligament of left ankle, initial encounter; X50.1XXA Overexertion from prolonged static or awkward postures, initial encounter; Y93.29 Activity, other involving ice and snow; Y92.9 Unspecified place or not applicable; Y99.9 Unspecified external cause status
CPT/HCPCS: 73610

== ENCOUNTER 2024-10-05 13:00 | Outpatient (RCR) | payer OTHER, SELFPAY ==
--- NOTE | 2024-08-04 09:04 | MHC.PT.EP ---
[facility] [place] Office [place] Office [place] Office [address] Arin Paredes [address] [phone] F: [phone] F: [phone] F: [phone] F: [phone] Physical Therapy Plan of Care Date of Evaluation: 08/04/24 Date of Surgery: Diagnosis: ROSA ANKLE SPRAINS (KP) Assessment: April SPRAINED RIGHT ANKLE, SLIPPED AND FELL ON ICE AND TWISTED ANKLE. WAS WEARING BOOT BUT SYMPTOMSWERE NOT RESOLVING, THEN ABOUT 5 WEEKS AGO SPRAINED LEFT ANKLE WITH TWISTING TYPE MOTION, DID NOT FALL. NOW WITH LITTLE IMPROVEMENT NOTED. TO ORTHO AND DX WITH TENDONSITIS. AT THIS TIME SHE IS ABLE TO WALK VERY SHORT DISTANCES WITHOUT CRUTCHES BUT CONTS TO HURT WITH WEIGHT BEARING. USING 2 AXILLARY CRUTCHES. REPORTS PAIN IS IN BOTH ANKLES ABOUT THE SAME. RIGHT ANKLE PAIN IS ALONG MEDIAL BOARDER, LEFT ANKLE PAIN IS MORE LATERAL. DENIES SIGNIFICANT BRUISING, SWELLING AND ANY ALTERED SENSATION. PAIN IS BETTER IN AM AND INCREASE THE DAY GOES. NIGHT TIME IS THE WORST. NOT WAKING DUE TO PAIN AT THIS TIME. ADVIL HELPS PAIN WELL ICE. 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 DIFFICULTY WITH SHOWERING, STAIRS, DOING LAUNDRY, OPENING DOORS ETC. UPON EXAM SHE DEMONSTRATES DECREASED DF ROM ROSA, DECREASED LE STRENGTH, ALTERED PROPRIOCPETION AND BALANCE, POOR GAIT PATTERN, INCREASED PAIN. FUNCTIONAL LIMITATIONS INCLUDE DECREASED TOLERANCE TO STATIC STANDING, WALKING, STAIR NEGOTIATION. SHE REPORTS DECREASED PARTICIPATION IN FITNESS AND RECREATIONAL ACTIVITIES INCLUDING ROCK CLIMBING, HIKING AND BIKING. Frequency and Duration: The patient will be seen 2 X WEEK FOR 6 WEEKS Short Term Goals: INITIATE HEP AND PROMOTE SELF MANAGEMENT OF SYMPTOMS Nursing Home Goals: FULL, PAIN FREE ANKLE ROM EQUAL ROSA FULL LE STRENGTH EQUAL ROSA TO PERFORM WALKING, STATIC STANDING AND STAIRS AD CIRO WITHOUT PAIN GREATER THAN 2/10 TO RETURN TO FITNESS AND RECREATIONAL ACTIVITIES INDEPENDENT HEP Treatment Plan: Modalities to reduce pain, spasms and effusion. Manual therapy to restore motion and function. Therapeutic exercise to improve strength and flexibility. Neuromuscular re-education for posture and balance. Therapeutic activities to return to functional activities of daily living. Electronically signed by: KATIE WHITLEY PT DPT Please sign and return to therapist. Thank you for your referral.
== END 2024-11-13 09:59 | disposition home or self-care (01) ==
LOC: HO.PT 13:00
PROVIDERS: PCP Pediatrics; Visit Provider Physician Assistant
DX: S93.401D Sprain of unspecified ligament of right ankle, subsequent encounter (principal); S93.402D Sprain of unspecified ligament of left ankle, subsequent encounter
CPT/HCPCS: 97110; 97161; 97530; 97535